=== PATIENT | female | born 1940 | race Caucasian/White ===

== ENCOUNTER → 2018-05-15 | Outpatient (CLI) | payer MEDICARE ==
--- NOTE | 2018-05-15 12:53 | Diagnostic Imaging Report ---
PROCEDURE: X-RAY CHEST, TWO VIEWS COMPARISON: None. INDICATIONS: SHORTNESS OF BREATH, PNEUMONIA FINDINGS: LUNGS: Bibasilar opacities likely secondary to atelectasis versus pneumonia in the correct setting. PLEURA: No effusions or pneumothorax. HEART & MEDIASTINUM: The heart is within normal size-limits. Calcification within the aortic knob. BONES & SOFT TISSUES: No acute findings. CONCLUSION: Bibasilar pulmonary opacities. Danielito Walker D.O. Dictated by: Danielito Walker D.O. on 05/15/2018 at 13:04 Electronically approved by: Danielito Walker D.O. on 05/15/2018 at 13:04
== END ==
LOC: RAD 11:56
PROVIDERS: ATTEND Internal Medicine Interventional Cardiology
DX: R06.02 Shortness of breath (principal); R07.89 Other chest pain; R06.2 Wheezing; J18.9 Pneumonia, unspecified organism
CPT/HCPCS: 71046

== ENCOUNTER → 2018-07-15 | Outpatient (CLI) | payer MEDICARE ==
--- NOTE | 2018-07-15 10:32 | Diagnostic Imaging Report ---
EXAMINATION: CT of the abdomen and pelvis without contrast. TECHNIQUE: Spiral CT images of the abdomen and pelvis were performed from the lung bases to the lesser trochanters. No intravenous contrast was given per renal stone protocol. Coronal and sagittal reformatted images were obtained. Low-dose technique was utilized. DLP: 723.32 mGy-cm COMPARISON: 04/06/2017 CLINICAL HISTORY: Flank pain DISCUSSION: ABSENCE OF INTRAVENOUS CONTRAST DECREASES SENSITIVITY FOR DETECTION OF FOCAL LESIONS AND VASCULAR PATHOLOGY. ABDOMEN/PELVIS: LOWER THORAX: Lingular and right middle lobe scarring. Calcification within the coronary arteries, mitral valve and aortic valve. 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 HEPATOBILIARY:No focal hepatic lesions. No biliary ductal dilation. The gallbladder is normal. SPLEEN: No splenomegaly with vascular calcification and single calcification near the hilum. PANCREAS: No focal masses or ductal dilatation. ADRENALS: No adrenal nodules. KIDNEYS/URETERS: No hydronephrosis. Bilateral cortical thinning with irregularity and scarring of the lower pole of the left kidney. Tiny stone within the distal right ureter. PELVIC ORGANS/BLADDER: The bladder is normal. Pelvic calcifications compatible with phleboliths. PERITONEUM/RETROPERITONEUM: No free air or fluid. Dystrophic mesenteric calcification inferior to the left kidney. LYMPH NODES: No intra-abdominal,retroperitoneal, pelvic or inguinal lymphadenopathy. VESSELS: Vascular calcification. GI TRACT: No distention or wall thickening. BONES AND SOFT TISSUES: No bony destructive lesions. Degenerative changes of the spine. No soft tissue abnormalities. IMPRESSION: 1. Tiny barely discernible distal right ureteral nonobstructing stone. 2. No renal stones, hydronephrosis or hydroureter. Signed by: Dr. Danielito Wlaker DO on 07/15/2018 10:28 AM
== END ==
LOC: CT 08:36
PROVIDERS: ATTEND Urology
DX: N20.0 Calculus of kidney (principal)
CPT/HCPCS: 74176

== ENCOUNTER → 2019-02-26 | Outpatient (CLI) | payer MEDICARE ==
--- NOTE | 2019-02-26 10:26 | Diagnostic Imaging Report ---
Exam: KUB - 2 views Indication: Renal calculi Comparison: CT abdomen and pelvis of 07/15/2018 Findings: No radiographically apparent renal calculi. Nonobstructive bowel gas pattern. Degenerative changes of the lumbar spine and both hip joints. Phleboliths in the left pelvis. Impression: No radiographically apparent renal calculi. Signed by: Jasiel Tran MD on 02/26/2019 10:23 AM
--- NOTE | 2019-02-26 10:28 | Diagnostic Imaging Report ---
EXAM: Renal Ultrasound INDICATION: ^[id number] ^[id number] ^URINARY TRACT INFECTION / CALCULUS OF KIDNEY COMPARISON: None TECHNIQUE: Transverse and longitudinal images of the kidneys and bladder were obtained. FINDINGS: Right Kidney: Length: 11.7 cm Appearance: Normal echogenicity. Collecting system: No hydronephrosis Stones: None Cyst/Mass: Lower pole 3.0 x 2.5 x 2.6 cm exophytic anechoic simple cyst without associated vascularity. Left Kidney: Length: 9.6 cm Appearance: Normal echogenicity. Collecting system: No hydronephrosis Stones: None Cyst/Mass: Parapelvic 1.6 x 1.8 x 1.5 cm anechoic simple cyst. Bladder: No mass or calculi. Bilateral ureteral jets seen. IMPRESSION: No hydronephrosis or renal calculi. Bilateral simple cysts as above. Signed by: Jasiel Tran MD on 02/26/2019 10:24 AM
== END ==
LOC: US 09:09
PROVIDERS: ATTEND Urology
DX: N39.0 Urinary tract infection, site not specified (principal); N20.0 Calculus of kidney
CPT/HCPCS: 74018; 76770